=== PATIENT | male | born 1975 | race American Indian/Alaskan Native ===

== ENCOUNTER 2017-09-17 07:40 | Outpatient (CLI) | payer BC ==
--- NOTE | 2017-09-17 08:08 | XRay Report ---
LEFT SHOULDER RADIOGRAPHS INDICATION: Shoulder pain. COMPARISON: None similar at this institution. FINDINGS: Frontal and Y views of the left shoulder, 5 images, demonstrate normal humeral head contour, well positioned against the glenoid. Normal acromioclavicular joint. Preserved scapular contour. Normal visualized soft tissues, left ribs and lung. CONCLUSION: No acute left shoulder radiographic abnormality, as described. Thank you for the opportunity to participate in this patient's care.
== END 2017-09-17 07:41 | disposition home or self-care (01) ==
LOC: SPVIMAG 07:40
PROVIDERS: ATTEND Orthopaedic Surgery
DX: M25.512 Pain in left shoulder (principal)